=== PATIENT | male | born 1945 | race Caucasian/White ===

== ENCOUNTER → 2024-11-14 08:05 | Outpatient (REF) | payer OTHER, SELFPAY | LOC: RAD 08:05 | PROVIDERS: ATTENDING PHYSICIAN Nurse Practitioner Acute Care; FAMILY PHYSICIAN Family Medicine | DX: I35.0 Nonrheumatic aortic (valve) stenosis (principal) | CPT/HCPCS: 74174; 75572; Q9967 ==

== ENCOUNTER 2025-01-09 08:52 | Inpatient (IN) | payer OTHER, SELFPAY ==
--- NOTE | 2025-01-01 14:05 | PTCARENOTE ---
Patient stated in 2018 prior to his knee surgery he had a positive MRSA nasal swab.
[2025-01-03 10:34] LABS: Hematocrit 38.8 % (39.0-52.0); Hemoglobin 12.7 g/dL (13.0-18.0); Mean Corp Hgb Conc. 32.7 g/dL (33.0-37.0); Mean Corpuscular Volume 92.2 fL (80.0-94.0); Nucleated Red Blood Cells % 0 % (-); Platelet Count 165 10^3/uL (130-400); Red Cell Dist. Width 14.6 % (11.5-14.5)
[2025-01-03 10:40] LABS: Urine Character Clear (Clear)
[2025-01-03 10:52] LABS: ALT (SGPT) 27 U/L (0-50); AST (SGOT) 17 U/L (17-59); Albumin 3.7 g/dl (3.5-5.0); Alkaline Phosphatase 69 U/L (38-126); Blood Urea Nitrogen 17 mg/dl (9-20); Calcium 9.2 mg/dl (8.4-10.2); Carbon Dioxide 33 mmol/L (22-30); Chloride 104 mmol/L (98-107); Glucose 119 mg/dl (70-99); Potassium 3.8 mmol/L (3.5-5.1); Sodium 140 mmol/L (135-145); Total Protein 6.1 g/dl (6.3-8.2); eGFR > 60.00
[2025-01-03 10:53] LABS: Urine Red Blood Cell 0-2 /HPF (0-2); Urine Squamous Cell 0-2 /LPF (Few); Urine White Cell 0-2 /HPF (0-5)
[2025-01-03 10:54] LABS: INR 1.18; PT 15.3 Sec (11.4-14.6)
--- NOTE | 2025-01-03 11:51 | HPS.HSE ---
Family Physician
-
Family Physician: Marsha Estrella
Examiner Of Currency: Dr. Barnes
Chief Complaint
-
Pre-operative History and Physical
History of Present Illness
Mr. Dumont is a pleasant 79yo gentleman�with a past medical history of pulmonary embolism, severe aortic stenosis, hypertension, hyperlipidemia, sleep apnea(CPAP), severe osteoarthritis and obesity. He had a right lung pulmonary embolism in November
2023.� He was hospitalized at [facility] and underwent an IR procedure to extract this large clot.� He has followed with Dr. Rebollar from hematology and is now on Eliquis indefinitely.� He states he was diagnosed with Factor V leiden. He is also
being followed by Dr. Rivera from the pulmonary department. 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 He does not exercise as often as he should. He remains compliant with his CPAP for sleep apnea.�He overall feels
well. He denies any chest pains, palpitations, PND or orthopnea. He has some mild dyspnea on exertion and fatigue. He is not overly active. He gets intermittent leg edema at times and does take Lasix as well as wears compression socks.
Echocardiogram was completed on 06/25/2024 and was notable for EF of 65%, AV PG/M.7/72.3, RITESH: 0.95, no significant AI. His cardiac cath was completed by Dr. Levin at [facility] on 08/02/2024 and showed very mild, non-obstructive CAD, calculated
AV M. He was reviewed by the structural heart team and TAVR was felt to be the appropriate treatment utilizing a 26mm S3 valve.
Medical History
Past Medical History
Past Medical History: Reports HTN and Other (h/o PE, factor V leiden, chronic low back pain, trifascicular block)
Past Surgical History: Reports Appendectomy, Orthopedic (left TKR, left shoulder rotator cuff repair) and Other (repair of deviated septum)
Social History
Tobacco: Non-smoker
Alcohol: None
Drug: None
Personal:
Living: With Family
Employment: Employed
Family History
Family History: CAD and Hypertension
Allergies / Home Medications
Allergies reflects when Allergies were last updated in [employer].
Home Medications with original date entered in [employer]
Allergy/Medication List:
Allergies:
NKDA
Medications:
Atorvastatin Calcium 20 MG Tablet 1 tablet Oral Once a Day
Bystolic(Nebivolol HCl) 10 MG Tablet 1 tablet Oral Once a Day
Eliquis(Apixaban) 5 MG Tablet as directed Orally twice a day
Enalapril Maleate 20 MG Tablet 1 tablet Oral Once a Day
Furosemide 40 MG Tablet 1 tablet Oral Once a Day
Gabapentin 300 MG Capsule 1 tablet Oral Once a Day
Latanoprost 0.005 % Solution Ophthalmic
traMADol HCl 50 MG Tablet 1 tablet as needed Orally Once a day
Review of Systems
-
History Source: Patient
Constitutional: Reports Fatigue
EENT: Reports No Symptoms
Respiratory: Reports No Symptoms; Denies Cough or Trouble Breathing
Cardiac: Reports No Symptoms; Denies Chest Pain, Palpitations or Syncope
Abdomen/GI: Reports No Symptoms; Denies Abdominal Pain, Nausea or Vomiting
: Reports No Symptoms; Denies Dysuria, Frequency or Difficulty Voiding
Musculoskeletal: Reports Other (chronic low back pain)
Skin: Reports No Symptoms
Neurological: Reports No Symptoms
Endocrine: Reports No Symptoms
Hematologic/Lymphatic: Reports Other (Factor V Leiden)
Psych: Reports No Symptoms and Calm
Physical Exam
Physical Exam
General: Well Developed, Well Nourished and No Apparent Distress
HEENT: NormoCephalic and PERRLA
Respiratory: Clear; No Wheezes, Rales or Rhonchi
Cardiac: S1/S2, Regular Rhythm and Murmur (Grade III/ WILLIAM); No Peripheral Edema
Breast: Deferred by me
GI: Soft, Non Tender, Non Distended and Normal Bowel Sounds
Rectal: Deferred by Provider
Genito-urinary: Deferred by me
Musculoskeletal: No Clubbing, No Cyanosis and No Edema
Skin: Warm and Dry
Neuro: AO x 3 and No Motor Deficits
Psych: Calm and Intact Judgment/Insight
Laboratory Results
-
01/03/25 09:51
01/03/25 09:51
Laboratory Results
PT 15.3 Sec (11.4-14.6) H 01/03/25 09:51
INR 1.18 01/03/25 09:51
Total Bilirubin 0.6 mg/dl (0.2-1.3) 01/03/25 09:51
AST 17 U/L (17-59) 01/03/25 09:51
ALT 27 U/L (0-50) 01/03/25 09:51
Alkaline Phosphatase 69 U/L (38-126) 01/03/25 09:51
Data Reviewed
-
Diagnostic Radiology: Report Reviewed by me (CXR: No acute cardiopulmonary abnormality)
CT Scan: Report Reviewed by me and Discussed with Physician (26mm S3 valve)
Medical Tests (Nuc Med, Echo, EKG etc): Report Reviewed by me (First degree heart block, bifascicular block- Notified EP )
Lab Data: Labs Reviewed by me
Old Records: Reviewed (consult notes)
Impression/Plan
-
IMPRESSION:
Severe Aortic Stenosis
PLAN:
-TF TAVR utilizing 26mm S3 valve
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
-Resume Eliquis post TAVR
-POD #1/#30 echocardiogram
-Cardiac rehab consult
-Antibiotic prophylaxis prior to all dental procedures.
[2025-01-03 11:58] LABS: Glycohemoglobin (HgbA1c) 6.4 % (4.0-5.6)
--- NOTE | 2025-01-03 12:16 | CM ---
Met with Mr. Dumont in [facility]. He states prior to admission he resides with his spouse in a three story home with five steps to the landing and then five steps to enter the home. He states he has a full flight of to get to bedroom/full bathroom. He
does not have a powder room on the first floor but he does have a bedside commode on the first floor to use if needed. He states prior to admission he ambulates with a single point cane and independent in adls. He states he has a single point
cane, bedside commode and CPAP Machine at home. He states he has prescription plan and uses [facility]. He states his spouse will be home to assist in his care if needed. The discharge plan is to return home with his spouse and a home visit by
Transitional Care Nurse when medically stable.
We reviewed pre-op and post-op routines. We reviewed the shower instructions. He has the soap, written instructions and the TAVR Educational Booklet. We also reviewed the restrictions including driving and lifting restrictions. We discussed a
home visit by the Transitional Care NUrse. He is agreeable to a home visit. The plan is for TAVR on , 01/09/25.
[2025-01-06 09:34] VITALS: BMI 38.3
[2025-01-09] VITALS (17 sets, daily range): BP systolic 135–163; BP diastolic 55–109; BMI 36.5
[2025-01-09 15:05] LABS: ACT-LR - POC 398 Seconds (116-155)
--- NOTE | 2025-01-09 15:20 | W.CVOR.SURPR ---
CVOR Surgeon Immed Pre Op
-
I have examined this patient prior to performance of the scheduled procedure.
The patient's condition is unchanged from the time of the dictated/written History and
Physical and the patient is able to undergo the scheduled procedure.
--- NOTE | 2025-01-09 15:20 | W.IMMPOSTOP ---
Surgical Immed Post Op Note
-
[id number]
STRUCTURAL HEART PROCEDURE NOTE: TAVR
Preoperative Dx:
Severe aortic stenosis with peak/mean valve gradients of 93.7/72.3 mmHg with calculated RITESH of 0.95. There was no significant associated aortic insufficiency.
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
History of PE
Chronic low back pain that limits his ability to lie supine
Hypertension
Postop diagnosis:
Same
Acute on chronic combined systolic/diastolic CHF secondary to his aortic stenosis with elevated LVEDP at 27 mmHg
Procedures:
1. Left FIBER OPTIC SPLICER access with tactile, ultrasound, and fluoroscopic guidance, micropuncture technique, limited angiography through micropuncture sheath, 6 Mauritanian sheath placement
2. Left CFV access with ultrasound and fluoroscopic guidance, Seldinger technique, 6 Mauritanian sheath placement
3. Right FIBER OPTIC SPLICER access with tactile, ultrasound, and fluoroscopic guidance, micropuncture technique, limited angiography through micropuncture sheath, 6 Mauritanian sheath placement
4. Placement of temporary RV pacing wire under fluoroscopic guidance with threshold testing
5. Placement of pigtail catheter in right coronary cusp with limited aortography and confirmation of coplanar valve deployment angles
6. Placement of Perclose sutures x 2 into right FIBER OPTIC SPLICER with placement of 8 Mauritanian sheath
7. Placement of Burgos E sheath via right FIBER OPTIC SPLICER (systemic heparinization)
8. Wire purchase across stenotic aortic valve (AL-1, soft-tipped straight wire, LVEDP assessment, extra-stiff wire with curve proximal end)
9. Right transfemoral TAVR with placement of 26 mm JAGDEEP 3 valve
10. Completion aortography
11. Completion TTE assessment (mean gradient 7 mmHg, trace PVL)
12. Removal of valve delivery system and Burgos E sheath from right FIBER OPTIC SPLICER with management with Perclose sutures x 2; manual pressure
13. Completion right iliofemoral angiography
14. Removal of left FIBER OPTIC SPLICER 6 Mauritanian sheath with management with 6 Mauritanian Angio-Seal; manual pressure (protamine administration)
15. Removal of temporary pacing wire and subsequent removal of left CFV 6 Mauritanian sheath; manual pressure
Studio Grip:
Dr. Last Peng
Cardiac Surgeon:
Dr. Aris Sage
Anesthesia:
General w/ LMA
Local to B/L groins
Cath Data:
Start: 1408hrs, Deploy: 1505hrs, End: 1517hrs
FT: 8.4min, mGy: 252, DAP: 35.4, Contrast: 104
Post-TTE: mean gradient 7mmHg, trace PVL
Implants:
Burgos [employer] 26mm JAGDEEP 3 RESILIA valve; SN: [id number]
Perclose x 2 to R FIBER OPTIC SPLICER
6Fr angioseal x 1 to L FIBER OPTIC SPLICER
Complications:
None
Condition:
Stable/guarded to recovery
--- NOTE | 2025-01-09 15:54 | CM ---
Reviewed chart. Mr. Dumont is in the operating room today. Prior to admission he resides with his spouse in a three story home with five steps to the landing and then five steps to enter the home. He has a full flight of to get to bedroom/full
bathroom. He does not have a powder room on the first floor but he does have a bedside commode on the first floor to use if needed. Prior to admission he ambulates with a single point cane and independent in adls. He has a single point cane,
bedside commode and CPAP Machine at home. He has prescription plan and uses [facility]. His spouse will be home to assist in his care if needed. The discharge plan is to return home with his spouse and a home visit by Transitional Care Nurse
when medically stable.
--- NOTE | 2025-01-09 16:00 | ITS.CL.TAVR ---
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
TAVR PRocedure
Procedure Report:
TRANSCATHETER AORTIC VALVE REPLACEMENT
Date of Procedure: January 09, 2025
Referring: Dr. Salbador Barnes
Operators: Drs. Last Peng and Aris Sage
PROCEDURE PERFORMED:
1. Successful placement of 26 mm Burgos Clark S3 aortic valve via right common femoral approach.
2. Vascular access was obtained with ultrasound guidance in the left common femoral artery with placement of a 6 Wolof sheath, in the left common femoral vein with placement of a 6 Wolof sheath, and in the right common femoral artery with
placement of a 6 Wolof sheath. Ultrasound guidance was utilized with micropuncture technique. Permanent images were captured and stored as part of patient's medical record
PREPROCEDURE NYHA CLASS: 3
DESCRIPTION OF PROCEDURE: The patient was referred for assessment of severe symptomatic aortic stenosis and following a comprehensive evaluation it was felt that transcatheter aortic valve replacement (TAVR) would be the most appropriate treatment.
Informed consent was obtained prior to the procedure. A 'time-out' was called and the procedural plan was verbally confirmed by anesthesia, surgery, perfusion, and engineer geophysical laboratory staff.
Arterial was obtained in the left common femoral artery using ultrasound guidance and micropuncture technique. A 6 Fr sheath was inserted. Ultrasound guidance was then utilized to gain access into the left common femoral vein and a 6 Fr sheath was
inserted. Attention was then turned to the right common femoral artery. Ultrasound guidance was utilized and access was obtained in the right common femoral artery using ultrasound guidance. Angiography through the micropuncture sheath revealed
appropriate positioning of the arteriotomy for preclosure with 2 Perclose devices. A 0.035 inch J-wire was then reinserted through the micropuncture sheath and a 6 Fr sheath was then inserted.
A transvenous pacemaker wire was then advanced from the left common femoral vein to the right ventricular apex where excellent pacing thresholds were obtained.
An angled pigtail catheter was then advanced through the left common femoral sheath and positioned in the proximal ascending thoracic aorta / right coronary cusp. Angiography was performed to define a coplanar angle facilitating positioning and
delivery of the TAVR device. SCOTTISH 16/MANAGER NON PROFIT 8 appear to be a reasonable coplanar angle.
Pre-closure of the right common femoral arteriotomy access site was then performed using 2 Perclose devices and was followed by placement of an 8 Fr arterial sheath.
An AL-1 catheter was then advanced to the proximal descending thoracic aorta over 0.035' J-tipped guidewire. An Amplatz Extra-Stiff wire was then advanced through the AL-1 catheter to the proximal descending thoracic aorta. The AL-1 catheter was
removed and the supportive wire was utilized to facilitate delivery of the Burgos eSheath and dilator. Heparin, 9000 units, was administered and the ACT was monitored. The ACT was subtherapeutic and an additional 3000 units of heparin was
administered. Repeat assessment of the ACT still revealed a subtherapeutic ACT and an additional 2000 units was administered with the ACT returning at 227. At this point, 10,000 units of heparin was administered and the ACT finally became
therapeutic measuring 358 seconds.
The AL-1 catheter was then readvanced through the Burgos eSheath. The 0.035' stiff wire was allowed to drift across the aortic arch and the AL1 was positioned just above the aortic valve. The stenotic leaflets were probed with a Soft-tip Straight
wire. The aortic leaflets were crossed and the AL-1 catheter followed the Soft-tip Straight wire to the mid left ventricle. The wire was removed. Left ventricular end-diastolic pressures was measured at 25 mmHg.
An Amplatz Extra-Stiff wire with a generous curved tip was then advanced to the mid left ventricle. The AL-1 catheter was removed and the Amplatz wire was left in place in order to facilitate delivery of the Burgos delivery system. A 26 mm
Burgos CLARK S3 valve was brought to the table and the orientation of the valve on the balloon delivery system was confirmed by all operators. The CLARK S3 valve was advanced through the eSheath and into the proximal descending thoracic aorta.
The CLARK valve was centered on the delivery balloon and the entire system was retroflexed as across the aortic arch in an SCOTTISH projection. The CLARK S3 delivery system was then advanced across the stenotic aortic leaflets. The pusher was
retracted. Angiography confirmed appropriate positioning of the valve and rapid pacing was undertaken. The 26 mm CLARK S3 valve was deployed during rapid pacing. Valve deployment was uneventful. Aortography following valve deployment suggested
trivial aortic insufficiency while the wire was still across the valve in the left ventricle.
The post valve deployment transthoracic echocardiogram was notable for a mean gradient of 7 mmHg.
The Burgos valve delivery system was removed. The Burgos eSheath was removed and the Perclose knots were advanced to the arteriotomy site with excellent hemostasis. Angiography after the Perclose knots were advanced to the arteriotomy site and
demonstrated good distal runoff.
A 6 Wolof Angio-Seal was then utilized to obtain hemostasis in the left common femoral artery. The temporary pacemaker and 6 Fr sheath were removed and manual pressure was held over the 6 Wolof femoral venous access.
Protamine was administered to reverse the intravenous anticoagulant.
Fluoro Time: 8.4 min, Dose: 252 mGy, DAP : 35.4 gy.cm2
CONCLUSIONS:
1. Severe symptomatic aortic stenosis. Successful deployment of a 26 mm CLARK S3 valve with trivial aortic insufficiency and a mean post valve deployment gradient of 7 mmHg
2. The right common femoral arteriotomy was closed with 2 Perclose devices and successful closure of the left arteriotomy site with a 6 Fr Angio-Seal
Copy to: Dr. Salbador Barnes
[2025-01-09] MEDS: DILAUDID 0.25 MG IV (16:12)
--- NOTE | 2025-01-09 17:19 | PTCARENOTE ---
Received patient from PACU at 1700 after TAVR procedure. Patient is AAO with stable neuro check. SR on the monitor with 1st degree HB and BBC. Bilateral groin sites are soft, no signs of hematoma or bleeding, dressings are dry. Pedal pulse with
doppler. Patient has chronic back pain which is his main concern and issue. Medicated in the PACU and tilted to the right in bed. Son at the bedside, call navarro in reach.
[2025-01-09] MEDS: LIPITOR 20 MG PO (20:08)
[2025-01-09] MEDS: LASIX 40 MG IV (20:08)
--- NOTE | 2025-01-09 20:57 | PTCARENOTE ---
Patient received at change of shift resting in the bed. Reports mod/severe back pain while on bedrest. Right and left groin sites with gauze and tegaderm C/D/I, pedal pulses weak to palpation. Sinus rhythm with 1st degree AVB and BBB on telemetry.
Once bedrest was completed the patient was assisted to sit on the side of the bed, initially reported feeling lightheaded but it did pass and the patient was later able to ambulate without issue, standby assist with single point cane. Back pain
significantly improved, pain score down to a 1, once bedrest was completed and this is presently acceptable for the patient. Neurological check WDL. Plan of care discussed. Call navarro within reach. Care ongoing.
[2025-01-09] MEDS: ANCEF 5 IV (21:10)
[2025-01-09] MEDS: NEURONTIN 300 MG PO (21:10)
[2025-01-09] MEDS: VASOTEC 20 MG PO (22:14)
[2025-01-09] MEDS: ROXICODONE 5 MG PO (22:19)
[2025-01-10] VITALS (7 sets, daily range): BP systolic 128–164; BP diastolic 51–67; PULSE 77; O2SAT 96–98; BMI 37.0
--- NOTE | 2025-01-10 00:51 | W.PN.CT ---
Today's Communication / Plan
-
No issues overnight�
Echo in AM�
Diuresis = received�Lasix�40 mg*1 and�20 mg�*1 po�of overnight�
Encourage IS, OOB�
Assessment / Plan
-
S/P placement of�26 mm�Burgos Clark S3 aortic valve via right common femoral approach POD 1
PMH:
Severe aortic stenosis with peak/mean valve gradients of 93.7/72.3 mmHg with calculated RITESH of 0.95
RBBB and left anterior fascicular block/Tri fascicular�block�
History of PE�
Chronic low back pain�
Hypertension
Subjective
-
Date of Service: January 10, 2025
Objective Data
-
PT 15.3 Sec (11.4-14.6) H 01/03/25 09:51
INR 1.18 01/03/25 09:51
Vital Signs
Vital Signs
Temp Pulse Resp BP Pulse Ox
98.0 F 78 18 152/56 96
01/09/25 23:06 01/09/25 23:07 01/09/25 23:06 01/09/25 23:07 01/09/25 23:06
CT Intake/Output/Weight
01/09/25 01/09/25 01/10/25
06:59 18:59 06:59
Output Total 1225 / 1225
Balance -1225 / -1225
SaO2: 96
Physical Exam
-
General: Awake
Cardiovascular: Regular rate & rhythm
Respiratory: Clear and Equal
Extremities: No Edema
[2025-01-10 03:36] LABS: Hematocrit 35.0 % (39.0-52.0); Hemoglobin 11.8 g/dL (13.0-18.0); Mean Corp Hgb Conc. 33.7 g/dL (33.0-37.0); Mean Corpuscular Volume 90.0 fL (80.0-94.0); Platelet Count 171 10^3/uL (130-400); Red Cell Dist. Width 14.3 % (11.5-14.5)
[2025-01-10 04:06] LABS: Blood Urea Nitrogen 18 mg/dl (9-20); Calcium 8.5 mg/dl (8.4-10.2); Carbon Dioxide 29 mmol/L (22-30); Chloride 103 mmol/L (98-107); Estimated Creatinine Clearance 122 ml/min; Glucose 205 mg/dl (70-99); Magnesium 2.1 mg/dl (1.6-2.3); Potassium 3.7 mmol/L (3.5-5.1); Sodium 138 mmol/L (135-145); eGFR > 60.00
[2025-01-10 05:00] LABS: Hepatitis C Antibody Negative (Negative)
--- NOTE | 2025-01-10 08:13 | W.PN.ANS.POP ---
Anesthesia Post Operative
- Anesthesia Post Op Note
Vital Signs Stable-See Nursing Note: Yes
Airway Patent: Yes
Adequate Pain Control: No
Change in Mental Status: No
Current Postoperative Nausea & Vomiting: No
Anesthesia Complications: No
General Anesthetic Recall: No
Unplanned Admission: No
Post Op Hydration Adequate: Yes
[2025-01-10 08:58] LABS: ACT-LR - POC 215 Seconds (116-155)
[2025-01-10] MEDS: BYSTOLIC 10 MG PO (09:10)
[2025-01-10] MEDS: LASIX 40 MG PO (09:10)
[2025-01-10] MEDS: LOW STRENGTH ASPIRIN 81 MG PO (09:10)
[2025-01-10 09:38] LABS: ACT-LR - POC 234 Seconds (116-155)
[2025-01-10 09:38] LABS: ACT-LR - POC 358 Seconds (116-155)
[2025-01-10 09:38] LABS: ACT-LR - POC 227 Seconds (116-155)
[2025-01-10 09:38] LABS: ACT-LR - POC 200 Seconds (116-155)
--- NOTE | 2025-01-10 10:45 | PTCARENOTE ---
Assumed care of the pt @ 0700. Pt is AAOx3 SR 1st degree AVB BBB on the monitor VSS. B/l groin site dressing c/d/i. neuro intact. Pt ambulates with single point cane. POC discussed with pt
--- NOTE | 2025-01-10 11:32 | W.DCSUMMARY ---
Discharge Summary
Discharge Data
Date of Admission: 01/09/25
Date of Discharge: 01/10/25
-
Pending Results: No
Hospital Course
Primary care physician: Dr. Marsha Estrella
Outpatient semiconductor wafer inspector: Dr. Salbador Barnes
Inpatient consultants: [facility]
Procedures:
1. Right transfemoral TAVR with #26 mm Burgos Clark 3 on 01/09/[address] Aris Sage and Dr. Last Peng
Primary Diagnosis:
1. Severe, symptomatic Aortic Stenosis
Secondary Diagnoses:
1. Hypertension
2. PE 2023 with clot extraction (Eliquis)
3. B/L TKR
4. TRISTA with use of CPAP
5. Osteoarthritis
6. Obesity
HPI: Robbie Dumont is a 79-year-old male with a known PMHx of severe,aortic stenosis who presented for outpatient consultation regarding his severe aortic stenosis. He underwent extensive outpatient diagnostic testing and determined to undergo TAVR.
Please see preoperative history and physical for complete presentation prior to procedure.
Hospital course: On 01/09/2025 patient was electively admitted for TAVR and underwent transcatheter aortic valve replacement via right transfemoral artery with #26 mm Burgos Clark [address] Last Peng and Dr. Aris Sage. Please see
interventional list and surgeons postoperative notes for complete details of procedure. Intraoperatively, there were no significant events and the patient went directly to Wildlife Refuge Manager recovery. Bilateral groin sites remained stable. Initial
postoperative TTE showed LVEF of 55-60%, TAVR valve with peak/mean gradient of 11/7 with trivial AI. LVEDP was estimated to be 25 in which he received Lasix 40 mg IV. Postoperative EKG showed SR with 1st AVB (280), RBBB, and LAFB. Following
recovery, he was transferred to the interventional unit for the remainder of his stay. On postoperative day 1, patient was tolerating his diet and ambulating without issue. Procedural sites were without hematoma or tenderness. Chest x-ray did not
show any cardiopulmonary process. EKG showed SR with 1st degree AVB (EVARISTO 272), LAD, and RBBB. His lab work remained normal and was given electrolyte replacement for a K of 3.7. TTE showed normal LV size and systolic function, mild LVH, EF 55-60%,
AV with well-seated 26 mm Burgos S3 TAVR with P/M 16/8 with race AI, and no pericardial effusion. He was deemed stable for discharge to home. His weight at discharge was 110.3 kg with a preoperative weight of 110.4 kg. He was sent home on his
prior home medication regimen with plan to continue Eliquis 5 mg BID. The importance of antibiotics prior to dental procedures was shared with patient. He was given education on caring for procedural sites. He will follow-up with his semiconductor wafer inspector
within 30 days from discharge and receive a repeat TTE. He will be seen by transitional care nursing within 2 to 3 days from discharge.
Home medication changes:
- See list provided below
Discharge Plan
-
Patient Disposition: Home (Routine Discharge)
Discharge Diagnosis/Procedures: Severe Aortic Stenosis
s/p right transfemoral TAVR (#26 mm Burgos Sapein3) with Dr. Aris Sage & Dr. Last Peng on 01/09/25
Condition: Good
Diet: Low Cholesterol and 2 Gram Sodium
Activity: As tolerated
Additional Activity: No heavy lifting anything > 10 lbs for 1-week.
Driving Restrictions: No driving for 1 week
Bathing Restrictions: OK to Shower
Others Tests: 30 Day Follow Up Echocardiogram: 02/11/2025 at 1:20pm in Dr. Barnes's office
Other Services: Cardiac Rehab
Wound Care: Please do not apply lotions, creams or powders to groin areas.
Please monitor for increased pain, redness, swelling or drainage. Notify your doctor if any occur.
Shower daily. Do not soak in tub, pool, or water for 1-week.
Specialty Instructions: Weigh Daily- Call MD for wt gain/loss 3 lbs overnight/5 lbs in 1 week
Activity Restrictions/Additional Instructions:
Please pre-medicate with Amoxicillin 2gm prior to all dental procedures.
Please call to make appointments for Phase II Cardiac Rehab:
1) [facility]: (5 min form home): [phone]
2) [facility]: (22 min form home): [phone]
* See handouts for additional information/address
Referrals:
CT Transitional Care Nurse [Outside]
Referral Note: The Cardiothoracic Transitional Care Nurse will call you to set up a visit in 1-2 days.
Gavi Saldana CRNP [Specified Professional Personl, Cardiology] - 02/18/25 11:40 am
Marsha Estrella DO [Family Provider]
Prescriptions:
New
acetaminophen 325 mg Tablet
650 mg PO Q6HPRN PRN (Reason: PINTO, mild pain, or fever >101F) Qty: 0 0RF
Continued
amoxicillin 500 mg Capsule
2,000 mg PO PRN PRN (Reason: prior to dental apt.)
tramadol 50 mg Tablet
50 mg PO PRN PRN (Reason: pain)
diphenhydramine-acetaminophen [Tylenol PM Extra Strength] 25-500 mg Tablet
2 tab PO HS PRN (Reason: sleep)
multivitamin [Multiple Vitamins] Tablet
1 tab PO DAILY Qty: 0 0RF
furosemide 40 mg Tablet
40 mg PO DAILY Qty: 0 0RF
latanoprost 0.005 % Drops
1 drp OPHTHALMIC (EYE) QPM Qty: 0 0RF
atorvastatin 20 mg Tablet
20 mg PO QPM Qty: 0 0RF
enalapril maleate 20 mg Tablet
20 mg PO HS Qty: 0 0RF
gabapentin 300 mg Capsule
300 mg PO HS Qty: 0 0RF
aspirin 81 mg Tablet
81 mg PO DAILY Qty: 0 0RF
nebivolol [Bystolic] 10 mg Tablet
10 mg PO DAILY Qty: 0 0RF
Eliquis 5 mg Tablet
5 mg PO BID Qty: 0 0RF
Discharge Orders:
Discharge Patient (As Directed); Ordered 01/10/25
Ordered By: Joanna Rodriguez
Discharge Date and Time
Print Language: SLOVENIAN
--- NOTE | 2025-01-10 11:39 | CM ---
Chart reviewed. Patient is independent of ADLS, lives with his in a 3 STH, 5 + 5 RAY, ambulates wtih a SPC and also has a bedside commode at home if needed. Plan is for the patient to return home with CT Transitional RN. CM to follow
--- NOTE | 2025-01-10 12:43 | W.PN.CARDCBS ---
Addendum entered and electronically signed by Melody Camacho MD 01/10/25 17:23:
I saw and examined the patient.
The Seafood Preparer's note was reviewed and I agree with the note.
Comment: Overnight patient did well and does not offer any significant complaints. No issues at the groin sites. He has been ambulating without any difficulty. No shortness of breath or chest discomfort.
Vital signs and lab work reviewed. On exam patient is well-appearing, out of bed in a chair, RR, normal S1 and S2, 2 out of 6 systolic ejection murmur at the right upper sternal border rubs or gallops, lungs are clear to auscultation bilaterally,
abdomen is soft, nontender, nondistended with active bowel sounds, warm extremities without significant edema. Bilateral groin sites with dressing in place which is clean, dry and intact without evidence of hematoma or bruit.
Recommendations:
1. Resume home Eliquis along with other cardiac medications.
2. Echocardiogram reviewed showing stable gradients without significant PVL.
3. Outpatient cardiology follow-up will be set up.
Stable for discharge otherwise from a cardiac standpoint.
Melody Camacho MD, [facility]
Original Note:
Today's Communication / Plan
-
echo pending
eliquis to be restarted
plan for DC to home
Impression / Plan
-
Primary Management Trainer: Dr. Barnes
Assessment:
Severe symptomatic aortic stenosis status post R TF Burgos Clark S3 TAVR 01/09/25
Chronic right bundle branch block, left anterior fascicular block, and 1st degree av block
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
Chronic low back pain
Hypertension
Hyperlipidemia
Obesity
Echo 01/09/2025: EF 55 to 60%, mild concentric LVH, number 26 mm Burgos CLARK TAVR with peak/mean gradients 11/7 mmHg, trace AR, no evidence of pericardial effusion
ECHO 01/10/25: pending
Plan:
-s/p R TF TAVR 01/09/25
-feeling well overnight
-has known chronic RBBB/LAFB/1st degree av block. stable post op. with 1 brief run of SVT vs atach noted on tele overnight, patient asymptomatic. no pauses or bradycardia
-continue OP bystolic, enalapril
-was on both asa and eliquis prior to admission. plan to resume eliquis tonight
-hgb stable at 11.8
-patient received IV lasix 40mg post procedure. continue po lasix 40mg daily as OP
-echo pending
-OP follow up with Dr. Barnes
-plan for DC today
-d/w nursing, TAVR coordinator
Progress Note - Management Trainer
Subjective
Date of Service: January 10, 2025
feeling well. eager for DC. no issues with significant groin discomfort.
Objective
Labs:
01/10/25 03:15
01/10/25 03:15
Labs
Hgb 11.8 g/dL (13.0-18.0) L 01/10/25 03:15
Hct 35.0 % (39.0-52.0) L 01/10/25 03:15
Plt Count 171 10^3/uL (130-400) 01/10/25 03:15
PT 15.3 Sec (11.4-14.6) H 01/03/25 09:51
INR 1.18 01/03/25 09:51
Sodium 138 mmol/L (135-145) 01/10/25 03:15
Potassium 3.7 mmol/L (3.5-5.1) 01/10/25 03:15
BUN 18 mg/dl (9-20) 01/10/25 03:15
Creatinine 0.6 mg/dL (0.7-1.3) L 01/10/25 03:15
Glucose 205 mg/dl (70-99) H 01/10/25 03:15
Vital Signs and I&O:
Vital Signs
Temp Pulse Resp BP Pulse Ox
98.4 F 79 20 128/67 97
01/10/25 11:11 01/10/25 08:00 01/10/25 11:11 01/10/25 07:42 01/10/25 11:11
Vital Signs
Temp Pulse Resp BP Pulse Ox
98.4 F 79 20 128/67 97
01/10/25 11:11 01/10/25 08:00 01/10/25 11:11 01/10/25 07:42 01/10/25 11:11
Intake & Output
01/08/25 01/09/25 01/10/25 01/11/25
07:59 07:59 07:59 07:59
Intake Total 720 / 720
Output Total 1825 / 1825 225 / 225
Balance -1105 / -1105 -225 / -225
Physical Exam
Physical Exam
GEN: No distress, awake, alert, oriented x3. obese. sitting in chair
HEENT: supple, anicteric, mmm, eomi
LUNGS: CTA B/L, no wheezes/rales
CV: Reg, S1/S2, 1/6 syst LSB
ABD: soft, BS+, NT/ND
EXT: No cyanosis, clubbing. 1+ edema of B/L LE
NEURO: Gross non-focal
SKIN: Warm, pink, dry. No rash
[2025-01-10] MEDS: KCL 20 MEQ PO (12:48)
--- NOTE | 2025-01-10 16:09 | PTCARENOTE ---
Pt was to discharged to home. Piv and animal groomer removed. All discharge instructions were reviewed and printed materials sent with pt. Pt was escorted out by RN via Wheelchair with son.
== END 2025-01-10 16:12 | disposition home or self-care (01) | DRG 266 ==
LOC: IVU 08:52
PROVIDERS: ADMITTING PHYSICIAN Thoracic Surgery (Cardiothoracic Vascular Surgery); FAMILY PHYSICIAN Family Medicine; OTHER PHYSICIAN Internal Medicine Interventional Cardiology
PROC: 02RF38Z Replacement of Aortic Valve with Zooplastic Tissue, Percutaneous Approach (ICD-10-PCS; 2025-01-09)
DX: I35.0 Nonrheumatic aortic (valve) stenosis (principal); Z00.6 Encounter for examination for normal comparison and control in clinical research program; I50.43 Acute on chronic combined systolic (congestive) and diastolic (congestive) heart failure; I45.3 Trifascicular block; D68.51 Activated protein C resistance; I11.0 Hypertensive heart disease with heart failure; G47.33 Obstructive sleep apnea (adult) (pediatric); E78.5 Hyperlipidemia, unspecified; E66.9 Obesity, unspecified; I25.10 Atherosclerotic heart disease of native coronary artery without angina pectoris; I44.0 Atrioventricular block, first degree; G89.29 Other chronic pain; M54.50 Low back pain, unspecified; Z68.37 Body mass index [BMI] 37.0-37.9, adult; Z86.711 Personal history of pulmonary embolism; Z79.01 Long term (current) use of anticoagulants
CPT/HCPCS: 33361; 36415; 71045; 71046; 80048; 80053; 81003; 81015; 82248; 83036; 83735; 83880; 85025; 85027; 85347; 85610; 86803; 86850; 86900; 86901; 87070; 93005; 93308; 93321; 93325; C1760; C1769; C1894